=== PATIENT | female | born 1990 | race Caucasian/White ===

== ENCOUNTER → 2023-05-10 12:56 | Outpatient (BNVA) | payer SELFPAY | PROVIDERS: Visit Provider Physician Assistant Medical ==

== ENCOUNTER 2023-08-03 20:03 | Emergency (ER) | payer BC, SELFPAY ==
[2023-08-03 20:18] VITALS: BP 129/90; PULSE 80; O2SAT 98
[2023-08-03 20:23] VITALS: BP 127/85; PULSE 74; RESP 18; TEMP 37.3; O2SAT 97; BMI 27.1
--- NOTE | 2023-08-03 20:46 | ED_ITS ---
HPI - Eye Problem General Chief complaint: Eye Problems Stated complaint: CENTRAL& PERIPHERAL STATIC VISION X1.5 HRS Time Seen by Provider: 08/03/23 20:45 Source: patient Mode of arrival: ambulatory Limitations: no limitations History of Present Illness HPI Narrative: Patient no significant past medical history status post LASIK surgery of the eye around 18:30 while sitting patient noticed halos in both eyes left more than right with moves with eye movements followed by patient had some frontal headache no nausea no vomiting no history of migraines symptoms lasted for an hour or so now the getting better no other deficits patient ambulating steady gait Related Data Previous Rx's Medication Instructions Recorded jdefkochvs-rxstyavbpggjy-elkpyymb 1 tab PO Q6H PRN haeadace #20 tabs 08/03/23 50 mg-325 mg-40 mg tablet Allergies Allergy/AdvReac Type Severity Reaction Status Date / Time codeine Allergy Rash Verified 08/03/23 20:32 Penicillins Allergy Hives Verified 08/03/23 20:32 sulfamethoxazole AdvReac Palpitation Verified 08/03/23 20:32 [From Bactrim] s trimethoprim [From Bactrim] AdvReac Palpitation Verified 08/03/23 20:32 s Review of Systems Review of Systems: Yes all other systems are reviewed and are negative [facility] Social History Social History Alcohol intake: current Alcohol intake frequency: holidays/special occasions only Smoked in Last 30 Days: No Use of substances other than those prescribed or required for medical reasons: No Advance Directives: No Advance Directives Information Provided: No Patient : No Physical Exam Vital Signs: Vital Signs: Last Vital Signs Temp 99.1 F 08/03/23 20:23 Pulse 72 08/03/23 21:45 Resp 16 08/03/23 21:45 BP 129/81 08/03/23 21:45 Pulse Ox 97 08/03/23 20:23 O2 Del Method Room Air 08/03/23 20:23 BMI result Body Mass Index 27.1 Appearance: Alert. Oriented X3. No acute distress. Eyes: PERRLA, No Nystagmus EOMI fundus benign, anterior and posterior chamber normal IOP 16 in both eyes, visual feel normal bilaterally no scotoma visual graf normal ENT: Pharynx normal. Oral Mucosa moist temporal artery nontender Neck: Normal inspection. Neck supple. CVS: Normal heart rate and rhythm. Pulses normal. Respiratory: No respiratory distress. Equal air entry bilateral, Abdomen: Soft and nontender. Bowel sounds are present, Skin: Skin warm and dry. Normal skin color. Normal skin turgor. Extremities: No lower extremity edema. No calf tenderness Neuro: Oriented X 3. No motor deficit. No sensory deficit.No cerebellar signs , cranial nerves II-XII intact Medications Administered Discontinued Medications Generic Name Dose Route Start Last Admin Trade Name Freq PRN Reason Stop Dose Admin Acetaminophen/Butalbital/Caffeine 1 tab 08/03/23 21:09 08/03/23 21:20 Butalb/Acetamin/Caff 50/325/40 Tablet PO 08/03/23 21:10 1 tab ONCE ONE Administration Medical Decision Making Differential Diagnosis Differential Diagnoses: The differential diagnosis associated with the presentation includes Glaucoma/migraine headache/ocular migraine Procedures Procedure Narrative Procedure Narrative: Ocular ultrasound bilateral: Normal anterior chamber and posterior chamber not take no signs of retinal detachment Discharge Plan Discharge Clinical Impression: Ocular migraine Patient Disposition: Home, Self-Care Instructions: Ocular Migraine (ED) Additional Instructions: Your symptoms likely with ocular migraine Take Fioricet 1 tablet every 6 hours as needed See 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
[2023-08-03] MEDS: Butalb/Acetamin/Caff 50/325/40 TABLET 1 TAB PO (21:20)
[2023-08-03 21:45] VITALS: BP 129/81; PULSE 72; RESP 16
== END 2023-08-03 21:55 | disposition home or self-care (01) ==
PROVIDERS: Emergency Provider Internal Medicine; PCP Internal Medicine
DX: G43.809 Other migraine, not intractable, without status migrainosus (principal)
CPT/HCPCS: 99283; 99284

== ENCOUNTER 2024-01-15 12:53 | Emergency (ER) | payer OTHER, SELFPAY ==
--- NOTE | ~2024-01-15 | XR_ITS ---
EXAMINATION: XR HAND/WRIST, RIGHT CLINICAL INFORMATION: Pain status post fall COMPARISON: None TECHNIQUE: PA, lateral, and oblique views of the right hand and wrist. FINDINGS: The bones and soft tissues are normal. No fracture. Alignment is anatomic. Joint spaces are maintained. No erosions or soft tissue calcifications. XR/XR hand wrist RT IMPRESSION: Normal radiographs of the hand and wrist.
--- NOTE | ~2024-01-15 | XR_ITS ---
EXAMINATION: XR SHOULDER, RIGHT CLINICAL INFORMATION: Pain status post fall COMPARISON: None available. TECHNIQUE: AP external rotation, Grashey, scapular Y, and axillary views of the right shoulder. FINDINGS: The bones and soft tissues are normal. No fracture. Glenohumeral and acromioclavicular alignment is anatomic with normal joint space. No abnormal soft tissue calcifications. XR/XR shoulder RT min 2V IMPRESSION: Normal right shoulder.
[2024-01-15 12:55] VITALS: BP 134/93; PULSE 92; RESP 16; TEMP 36.3; O2SAT 99; BMI 24.8
--- NOTE | 2024-01-15 15:00 | ED_ITS ---
HPI - Fall General Chief Complaint: Fall Stated Complaint: fall Time Seen by Provider: 01/15/24 12:55 Source: patient and RN notes reviewed Mode of arrival: ambulatory Limitations: no limitations History of Present Illness ED Provider: Camilla Vasques PA-C [facility] Narrative: This is a 33-year-old female who presents emergency department with complaints of right shoulder and right wrist pain after a mechanical fall which occurred 2 days ago. Patient states that she was wearing high heels and tripped on them causing her to fall onto her right side. She did strike the right side of her face. No loss of consciousness. She has had pain in her right shoulder and right wrist since this fall. She has been wearing a wrist splint for comfort which has provided her with some relief. Denies any severe headache or dizziness. She is right-handed, she does have good range of motion of her right wrist and right shoulder however this causes her to have more pain. No other complaints or concerns at this time. MD complaint: fall Onset (ago): day(s) Fall witnessed: no Context: tripped/slipped Location of injury - extremities: right: shoulder Severity: moderate Quality: aching Associated symptoms (after fall): denies Related Data Previous Rx's ?Medication ?Instructions ?Recorded hmmlkojwiq-kxvapbreijtww-ifamtzqt 1 tab PO Q6H PRN haeadace #20 tabs 08/03/23 50 mg-325 mg-40 mg tablet Allergies Allergy/AdvReac Type Severity Reaction Status Date / Time codeine Allergy Rash Verified 01/15/24 12:59 Penicillins Allergy Hives Verified 01/15/24 12:59 sulfamethoxazole AdvReac Palpitation Verified 01/15/24 12:59 [From Bactrim] s trimethoprim [From Bactrim] AdvReac Palpitation Verified 01/15/24 12:59 s Review of Systems Review of Systems: Yes all other systems are reviewed and are negative Constitutional: Constitutional: Reports as per [facility] Social History Social History Alcohol intake: current Alcohol intake frequency: holidays/special occasions only Advance Directives: No Physical Exam Vital Signs: Vital Signs: Last Vital Signs Temp 97.3 F 01/15/24 15:06 Pulse 92 01/15/24 15:06 Resp 16 01/15/24 15:06 BP 134/93 H 01/15/24 15:06 Pulse Ox 99 01/15/24 15:06 O2 Del Method Room Air 01/15/24 15:06 BMI result Body Mass Index 24.8 Const: General: cooperative, comfortable and no acute distress Orientation/consciousness: patient oriented x3 Limitations: no limitations HEENT: Head: Yes normal to inspection, Yes normocephalic and Yes atraumatic Ears: hearing grossly normal bilaterally General nose exam: Normal external nose present Face and sinus: Yes normal facial exam Mouth: Normal oral and palatal mucosa present, oropharynx normal and moist mucous membranes Throat: Yes posterior oropharynx normal Eyes: General: appearance normal, both eyes and all related structures Eyelids: Yes eyelids normal Conjunctivae: conjunctivae normal Sclerae: sclerae normal Pupils: Equal, round and reactive pupils present EOM: EOMs intact bilaterally Neck: Neck: Yes normal visual inspection, Yes full ROM and Yes no lymphadenopathy Lymphatic: no lymphadenopathy noted Chest: Chest palpation & inspection: normal inspection of the chest Resp: Effort & Inspection: normal respiratory effort and able to speak in complete sentences Auscultation: clear to auscultation bilaterally, no crackles, no rales, no rhonchi and no wheezes Cardio: Rate: regular rate Rhythm: regular rhythm Heart sounds: S1 normal heart sound present and S2 normal heart sound present GI: Inspection: Yes normal to inspection Skin: General skin exam: no rashes or lesions noted Trauma: no lacerations or abrasions Wounds: no wounds Neuro: General: patient oriented x3 and moves all extremities Cranial nerves: Yes Equal, round and reactive pupils present Extrem: Other: Right shoulder, no overlying ecchymosis, bony abnormality or swelling. She does have tenderness palpation along the right AC joint full range of motion of the shoulder without difficulty. Negative empty can Right wrist, with full range of motion, no snuffbox tenderness. Strong radial pulse. Able to make a fist without difficulty. Mild tenderness palpation along the 5th metacarpal. General: Yes normal to inspection Right upper extremity: normal to inspection Left upper extremity: normal to inspection Right lower extremity: normal to inspection Left lower extremity: normal to inspection Course Reevaluation(s) Reevaluation #1: X-rays negative, discussed with patient, also given return precautions. She understands and agrees with plan. Patient stable for discharge. Medical Decision Making Medical Decision Making [facility] Narrative: This is a 33-year-old female who presents to the emergency department with complaints of right wrist pain and right shoulder pain status post mechanical fall which occurred on . On arrival, patient mildly hypertensive at 134/93. She did report head strike however no LOC, headache or dizziness since the fall. No obvious bony deformity on examination however given pain and mechanical fall, will obtain x-rays for rule out of bony abnormality. Differential Diagnosis Differential Diagnoses: The differential diagnosis associated with the presentation includes Fracture, strain, strain, contusion Independent Interpretation Interpretation: X-rays reviewed by me, no obvious bony deformity or swelling. Radiology Impression Discussion of test interpretation with radiology: I have reviewed the radiologist's reading. Radiologist Impression: FINDINGS: The bones and soft tissues are normal. No fracture. Glenohumeral and acromioclavicular alignment is anatomic with normal joint space. No abnormal soft tissue calcifications. XR/XR shoulder RT min 2V IMPRESSION: Normal right shoulder. Dictated By: Fernando Lacy MD XR/XR hand wrist RT IMPRESSION: Normal radiographs of the hand and wrist. Dictated By: Fernando Lacy MD External Record Review External record reviewed: Inpatient record, Office record, Outpatient record, Prior outpatient labs, Prior outpatient radiology, Primary care record and Outside ED record Discharge Plan Discharge Clinical Impression: Contusion of right shoulder, Contusion of right wrist Patient Disposition: Home, Self-Care Instructions: Contusion in Adults (ED) Additional Instructions: You were seen in the emergency department after a trip and fall. Your x-rays are unremarkable. Please rest, ice, alternate between ibuprofen and Tylenol as needed. If any new or worsening symptoms occur including but not limited to worsening pain, please return for re-evaluation. Prescriptions: No Action tqmgdgukmz-grgcydicwjlre-twlk 50-325-40 mg tablet 1 tab PO Q6H PRN (Reason: haeadace) Qty: 20 0RF Interventions: ED Discharge Assessment Last Done: 01/15/24 15:06 Discharge Date/Time: 01/15/24 15:07 Print Language: Croatian
[2024-01-15 15:06] VITALS: BP 134/93; PULSE 92; RESP 16; TEMP 36.3; O2SAT 99
== END 2024-01-15 15:07 | disposition home or self-care (01) ==
PROVIDERS: Emergency Provider Emergency Medicine Emergency Medical Services; PCP Internal Medicine
DX: S40.011A Contusion of right shoulder, initial encounter (principal); S60.211A Contusion of right wrist, initial encounter; W01.0XXA Fall on same level from slipping, tripping and stumbling without subsequent striking against object, initial encounter; Y93.01 Activity, walking, marching and hiking; Y92.9 Unspecified place or not applicable; Y99.9 Unspecified external cause status
CPT/HCPCS: 73030; 73110; 73130; 99282; 99283

== ENCOUNTER 2024-06-15 15:04 | Emergency (ER) | payer OTHER, SELFPAY ==
--- NOTE | ~2024-06-15 | CT_ITS ---
EXAMINATION: CT ABDOMEN AND PELVIS WITHOUT CONTRAST CLINICAL INFORMATION: Lower abdominal pain COMPARISON: None available. TECHNIQUE: Multidetector volumetric imaging was performed from the superior aspect of the liver through the pubic symphysis. Sagittal and coronal reformatted images were obtained on the technologist's workstation. This CT examination was performed using dose optimization techniques as appropriate, variously including the following: *Automated exposure control *Adjustment of mA and/or kV according to patient size (this includes techniques or standardized protocols for targeted exams where dose is matched to indication/reason for exam; i.e. extremities or head) *Use of iterative reconstruction technique DLP: 405 mGy-cm FINDINGS: LUNG BASES: The visualized lung bases are unremarkable. LIVER, GALLBLADDER, AND BILIARY TREE: The liver is normal in size, shape, and attenuation. No focal hepatic lesion or biliary ductal dilatation is present. The gallbladder is unremarkable with no evidence of radiopaque gallstones, gallbladder wall thickening, or obvious pericholecystic inflammatory changes. PANCREAS: Unremarkable. SPLEEN: Unremarkable. ADRENAL GLANDS: Unremarkable. KIDNEYS AND URETERS: The kidneys are normal in size, shape, and attenuation. No hydronephrosis, hydroureter, or calculi seen. No perinephric stranding. BLADDER: Unremarkable. GASTROINTESTINAL TRACT: The small and large bowel are unremarkable. The appendix is not identified. ABDOMINAL WALL: No significant hernia is appreciated. LYMPH NODES: Normal. VASCULAR: Unremarkable. PELVIC VISCERA: Mild inflammatory stranding around the cervix. Otherwise unremarkable. OSSEOUS STRUCTURES: Unremarkable. CT/CT abdomen pelvis wo IV con IMPRESSION: 1. Mild inflammatory stranding around the cervix which is of uncertain significance. Correlate with physical exam. 2. Otherwise, no focal inflammatory process or obstruction. Fleischner guidelines were followed. Electronically signed by: Thanh Schneider MD 06/15/2024 06:05 PM [facility]
--- OUTSIDE RECORDS SUMMARY | 2024-06-15 15:08 | XMS_ITS ---
Author Name [facility] Organization Unknown History of Medication Use Medication Directions Dispensed Refills Start Date End Date [facility] benzonatate 100 mg capsule TAKE 1 CAPSULE BY MOUTH THREE TIMES A DAY NEEDED FOR COUGH 04/26/2024 completed ibuprofen 800 mg tablet TAKE 1 TABLET EVERY 6 TO 8 HOURS NEEDED 04/18/2024 9 active trazodone 50 mg tablet TAKE 1/2 TO 1 TABLET ORALLY AT BEDTIME NEEDED FOR INSOMNIA 04/18/2024 9 active doxycycline hyclate 100 mg tablet TAKE 1 TABLET (100 MG TOTAL) BY MOUTH IN THE MORNING AND BEFORE BEDTIME FOR 7 DAYS 04/18/2024 9 completed hyoscyamine 0.125 mg sublingual tablet TAKE 1 TABLET BY MOUTH EVERY 4 HOURS NEEDED FOR CRAMPING. 04/18/2024 9 active chlorhexidine gluconate 0.12 % mouthwash RINSE WITH 1/2 OZ TWICE A DAY THEN SPIT OUT. DO NOT SWALLOW 04/18/2024 9 active hydrocodone 5 mg-acetaminophen 325 mg tablet 04/26/2024 completed methocarbamol 750 mg tablet 04/18/2024 9 completed metronidazole 0.75 % topical cream 04/18/2024 9 completed Nexplanon 68 mg subdermal implant Inject 1 implant by subcutaneous route. 04/26/2024 active fluticasone propionate 0.05 % topical cream 04/18/2024 9 completed Transderm-Scop 1 mg over 3 days transdermal patch 04/18/2024 9 completed gentamicin 0.3 % eye drops ADMINISTER 1 DROP TO THE RIGHT EYE 3 TIMES A DAY. 04/18/2024 9 completed clindamycin HCl 300 mg capsule PLEASE SEE ATTACHED FOR DETAILED DIRECTIONS 04/18/2024 9 completed hyoscyamine ER 0.375 mg tablet,extended release,12 hr 04/18/2024 9 completed Imodium A-D 04/18/2024 99 9 completed albuterol sulfate HFA 90 mcg/actuation aerosol inhaler INHALE 2 PUFFS BY MOUTH EVERY 6 HOURS NEEDED FOR WHEEZE 04/18/2024 9 completed Zyrtec 10 mg capsule 9 active Vyvanse 20 mg capsule 04/18/20 9 completed Elidel 1 % topical cream 04/26/2024 completed cyclobenzaprine 10 mg tablet 04/18/2024 9 completed prednisolone acetate 1 % eye drops,suspension 04/26/2024 complete d propranolol ER 60 mg capsule,24 hr,extended release TAKE 1 CAPSULE BY MOUTH EVERY DAY 04/18/2024 9 active lidocaine 5 % topical patch 04/26/2024 completed escitalopram 10 mg tablet TAKE 1 AND 1/2 TABLETS ONCE DAILY 04/18/2024 9 active alprazolam 0.25 mg tablet TAKE 1 TABLET BY MOUTH TWICE A DAY NEEDED FOR ANXIETY 04/18/2024 9 completed alprazolam 0.5 mg tablet TAKE 1/2 TABLET BY MOUTH TWICE A DAY NEEDED FOR ANXIETY 04/26/2024 active pantoprazole 40 mg tablet,delayed release TAKE 1 TABLET BY MOUTH EVERY MORNING ON AN EMPTY STOMACH. 04/26/2024 completed clobetasol 0.05 % topical ointment APPLY THIN COAT TO AFFECTED AREA TWICE A DAY 04/26/2024 completed ondansetron 4 mg disintegrating tablet DISSOVE 1 TABLET ON TONGUE EVERY 6 HOURS FOR NAUSEA 04/18/2024 9 active lisdexamfetamine 30 mg capsule TAKE 1 CAPSULE BY MOUTH EVERY DAY 04/26/2024 active ofloxacin 0.3 % eye drops 04/26/2024 completed diazepam 2 mg tablet 9 completed cephalexin 500 mg capsule PLEASE SEE ATTACHED FOR DETAILED DIRECTIONS 04/18/2024 9 completed doxycycline (VIBRA-TABS) 100 mg tablet Take 1 tablet (100 mg total) by mouth in the morning and 1 tablet (100 mg total) before bedtime. Do all this for 7 days. 03/30/2024 active HYDROcodone-acetamino phen (NORCO) 7.5-325 mg per tablet 02/14/2024 active ondansetron (ZOFRAN-ODT) 4 MG disintegrating tablet Take 4 mg by mouth 4 times daily (every 6 hours) as needed for nausea or vomiting. FOR NAUSEA 12/29/2023 active proMETHAZINE-dextrome thorphan (proMETHAZINE-DM) 6.25-15 MG/5ML syrup Take 5 mL by mouth 4 times daily (every 6 hours) as needed for cough. 12/29/2023 active propranolol (INDERAL) 60 MG tablet Take 60 mg by mouth 2 (two) times a day. 08/16/2022 active scopolamine (TRANSDERM-SCOP) patch Transderm-Scop 1.5 mg transdermal patch (1 mg over 3 days) APPLY 1 PATCH(ES) EVERY 72 HOURS BY TRANSDERMAL ROUTE. 08/16/2022 active etonogestreL (NEXPLANON) implant subdermal implant Nexplanon 68 mg subdermal implant Inject by subcutaneous route. 02/08/2022 active clindamycin (Cleocin HCL) 300 mg capsule Take 1 capsule (300 mg total) by mouth in the morning and 1 capsule (300 mg total) at noon and 1 capsule (300 mg total) before bedtime. Do all this for 10 days. 02/08/2022 active Multiple Vitamins-Minerals (MULTIVITAMIN ADULT PO) Take by mouth. 08/16/2022 active gentamicin (GARAMYCIN) 0.3 % ophthalmic solution Administer 1 drop to the right eye 3 (three) times a day. 08/16/2022 aborted Melatonin [address] 1 tablet under the tongue nightly. 08/16/2022 active traZODone (DESYREL) 50 MG tablet trazodone 50 mg tablet 08/16/2022 active Cetirizine HCl (ZyrTEC) 10 MG Cap Take by mouth. 08/16/2022 ac tive gentamicin 0.3 % eye drops ADMINISTER 1 DROP TO THE RIGHT EYE 3 TIMES A DAY. ADMINISTER 1 DROP TO THE RIGHT EYE 3 TIMES A DAY. 12/19/2022 completed traZODone (DESYREL) 50 mg tablet TAKE 1/2 TO 1 TABLET ORALLY AT BEDTIME NEEDED FOR INSOMNIA 02/08/2022 active acetaminophen (TYLENOL) 325 MG tablet Take 650 mg by mouth 4 times daily (every 6 hours) as needed. 08/16/2022 active benzonatate (Tessalon Perles) 100 mg capsule Take 100 mg by mouth 3 times daily as needed. 02/08/2022 active cetirizine (ZyrTEC) 10 MG tablet Take 10 mg by mouth daily. 08/16/2022 aborted cetirizine (ZyrTEC) 10 mg tablet Take by mouth. 02/08/2022 active scopolamine (TRANSDERM-SCOP) 1.5 mg patch 3 day Transderm-Scop 1.5 mg transdermal patch (1 mg over 3 days) APPLY 1 PATCH(ES) EVERY 72 HOURS BY TRANSDERMAL ROUTE. 02/08/2022 active hyoscyamine (LEVSIN) 0.125 mg SL tablet Take 0.125 mg by mouth every 30 minutes as needed. 02/08/2022 active Calcium-Vitamin D-Vitamin K (Calcium Soft Chews) 500-1000-40 MG-UNT-MCG Chew Tab Chew 1 gummy daily. 08/16/2022 active doxycycline (VIBRAMYCIN) 100 MG capsule Take 1 capsule (100 mg total) by mouth 2 (two) times a day. 07/12/2023 active propranolol ER 60 mg capsule,24 hr,extended release TAKE 1 CAPSULE BY MOUTH EVERY DAY TAKE 1 CAPSULE BY MOUTH EVERY DAY 12/19/2022 completed trazodone 50 mg tablet TAKE 1/2 TO 1 TABLET ORALLY AT BEDTIME NEEDED FOR INSOMNIA TAKE 1/2 TO 1 TABLET ORALLY AT BEDTIME NEEDED FOR INSOMNIA 12/19/2022 completed etonogestrel (Nexplanon) 68 MG implant Nexplanon 68 mg subdermal implant Inject 1 implant by subcutaneous route. 08/16/2022 active alprazolam 0.5 mg tablet TAKE 1/2 TABLET TWICE A DAY NEEDED FOR ANXIETY TAKE 1/2 TABLET TWICE A DAY NEEDED FOR ANXIETY 12/19/2022 completed clobetasol (TEMOVATE) 0.05 % ointment clobetasol 0.05 % topical ointment APPLY A THIN LAYER TO THE AFFECTED AREA(S) BY TOPICAL ROUTE 2 TIMES PER DAY 08/16/2022 aborted ALPRAZolam (XANAX) 0.5 mg tablet 0.25mg bid prn anxiety 09/12/2023 active calcium-vitamin D3-vitamin K 650 mg-12.5 mcg-40 mcg tablet,chewable 02/08/2022 active propranolol LA (INDERAL LA) 60 mg 24 hr capsule TAKE 1 CAPSULE BY MOUTH EVERY DAY 02/08/2022 active naproxen (NAPROSYN) 250 mg tablet Take 250 mg by mouth nightly. 02/08/2022 active albuterol (PROVENTIL HFA; VENTOLIN HFA) 108 (90 Base) MCG/ACT inhaler Inhale 2 puffs 4 times daily (every 6 hours) as needed for wheezing. 08/16/2022 active escitalopram 10 mg tablet TAKE 1 AND 1/2 TABLETS ONCE DAILY TAKE 1 AND 1/2 TABLETS ONCE DAILY 12/19/2022 completed Nexplanon 68 mg subdermal implant Inject 1 implant by subcutaneous route. Inject 1 implant by subcutaneous route. 12/19/2022 completed hyoscyamine (LEVSIN) Elixir Take 125 mcg by mouth every 4 (four) hours as needed. 08/16/2022 active albuterol HFA 90 mcg/actuation inhaler every 6 hours. 02/08/2022 active Nexplanon 68 mg subdermal implant Inject 1 implant by subcutaneous route. Inject 1 implant by subcutaneous route. 12/19/2022 completed lisdexamfetamine (VYVANSE) 20 MG capsule Take 30 mg by mouth. 08/16/2022 active lisdexamfetamine (Vyvanse) 30 mg capsule 30mg po qd. Diagnosis: ADHD F90.2 02/08/2022 active benzonatate (TESSALON) 100 MG capsule Take 1 capsule (100 mg total) by mouth 3 (three) times a day as needed for cough. 08/16/2022 aborted escitalopram (LEXAPRO) 10 MG tablet Take 10 mg by mouth daily. 08/16/2022 active Vyvanse 30 mg capsule TAKE 1 CAPSULE BY MOUTH DAILY TAKE 1 CAPSULE BY MOUTH DAILY 12/19/2022 completed melatonin 10 mg tablet,disintegrating 02/08/2022 act arelis ALPRAZolam (XANAX) 0.25 mg tablet TAKE 1 TABLET BY MOUTH 2 TIMES A DAY NEEDED FOR ANXIETY. 02/08/2022 active propranolol (INDERAL) 10 MG tablet Take 10 mg by mouth 3 (three) times a day. 08/16/2022 active naproxen (NAPROSYN) 250 MG tablet Take 250 mg by mouth. 08/16/2022 aborted cetirizine (ZyrTEC) 10 mg tablet Take 10 mg by mouth in the morning. 09/12/2023 active ALPRAZolam (XANAX) 0.25 MG tablet Take 0.25 mg by mouth 2 (two) times a day as needed. 08/16/2022 active cephALEXin (KEFLEX) 500 mg capsule Take 1 capsule (500 mg total) by mouth in the morning and 1 capsule (500 mg total) before bedtime. Do all this for 14 days. 02/08/2022 active escitalopram (LEXAPRO) 10 mg tablet TAKE 1 AND 1/2 TABLETS ONCE A DAY 02/08/2022 active MULTIVIT WITH MINERALS/LUTEIN (MULTIVITAMIN 50 PLUS ORAL) Take by mouth. 02/08/2022 active acetaminophen (TYLENOL) 650 mg 8 hr tablet Take 1,000 mg by mouth every 6 hours as needed. 02/08/2022 active Allergies Allergen Reaction Severity Comment Documented Date Source Statu s MEDICINAL PRODUCT CONTAINING PENICILLIN AND ACTING ANTIBACTERIAL AGENT (PRODUCT) hives [facility] BACTRIM Vomiting [facility] Problems Problem Status Onset Date Problem Type Date of Resolution Source ADHD (attention deficit hyperactivity disorder) evaluation active 2019-03-29 ProblemAct [facility] Post traumatic stress disorder (PTSD) active 2019-03-29 ProblemAct [facility] Anxiety disorder active 2019-11-07 ProblemAct [facility] Ingrown toenail of right foot active EncounterDiagnosisAct [facility] Pincer nail deformity active EncounterDiagnosis Act [facility] Irritable bowel syndrome with both constipation and diarrhea active 2016-08-05 ProblemAct [facility] Moderate episode of recurrent major depressive disorder active 2022-10-08 ProblemAct [facility] Major depressive episode active 2020-06-07 ProblemAct [facility] Acute lateral meniscus tear of left knee active 2018-07-06 ProblemAct [facility] On correction drug therapy active 2023-02-04 ProblemAct [facility] Adjustment disorder with mixed anxiety and depressed mood active 2019-10-31 ProblemAct [facility] GERD (gastroesophageal reflux disease) active 2016-01-24 ProblemAct [facility] Lumbar pain active 2019-08-17 ProblemAct [facility] Acute bronchitis, unspecified organism active EncounterDiagnosisAct [facility] Immunizations Vaccine Date Source Lot Number Status COVID-19, mRNA, LNP-S, PF, 1 00 mcg/0.5mL dose or 50 mcg/0.25mL dose 07/04/2020 [facility] [id number] completed Tdap 11/11/2019 [facility] [id number] completed Hep B, adult 10/07/2021 [facility] [id number] completed Hep B, adult 09/09/2021 [facility] [id number] completed influenza, injectable, quadr ivalent, preservative free 04/10/2022 [facility] [id number] completed Hep B, adult 04/10/2022 [facility] [id number] completed COVID-19 MRNA (MODERNA) 07/29/2020 [facility] [id number] c ompleted Influenza, Quadrivalent 04/10/2020 [facility] [id number] c ompleted COVID-19 MRNA MODERNA BIVALENT 07/03/2022 [facility] [id number] 2A completed COVID-19 MRNA (MODERNA) 07/03/2020 [facility] [id number] c ompleted COVID-19 mRNA (MODERNA BOOSTER 1/2 DOSE) 05/20/2021 [facility] [id number] completed
[2024-06-15 15:15] VITALS: BP 148/98; PULSE 88; RESP 18; TEMP 36.8; O2SAT 97; BMI 24.8
[2024-06-15 15:41] LABS: MANUAL DIFF FLAG NO
[2024-06-15 15:45] LABS: Basophils Percent Auto 0.3 % (0-2); Eosinophils Absolute Auto 0.1 X10*3/uL (0.0-0.4); Eosinophils Percent Auto 1.1 % (0-4); Hematocrit 38.9 % (37.0-47.0); Hemoglobin 13.4 g/dl (12.0-16.0); Imm Gran Abs Auto 0.01 X10*3/uL (0.00-0.03); Imm Gran Pct Auto 0.2 % (0.0-0.4); Lymphocytes Absolute Auto 1.2 X10*3/uL (1.2-4.9); Mean Corpuscular HGB Conc 34.4 g/dl (31.0-35.0); Mean Corpuscular Hemoglobin 30.5 pg (27.0-33.0); Mean Corpuscular Volume 88.4 fL (80.0-98.0); Mean Platelet Volume 8.6 fL (9.4-12.3); Monocytes Absolute Auto 0.5 X10*3/uL (0.1-1.2); Monocytes Percent Auto 7.5 % (2-11); Neutrophils Absolute Auto 4.4 x10*3/uL (2.0-8.3); Neutrophils Percent Auto 70.9 % (45-73); Platelet Count 239 X10*3/uL (160-400); Red Cell Distribution Width 12.2 % (11.0-16.0); White Blood Count 6.2 X10*3/uL (4.8-10.8)
--- NOTE | 2024-06-15 15:48 | ED_ITS ---
HPI - Abdominal Pain General Chief Complaint: Abdominal Pain Stated Complaint: Abd pain Time Seen by Provider: 06/15/24 15:21 Source: patient Mode of arrival: ambulatory Limitations: no limitations History of Present Illness ED Provider: Manoj Randolph PA-C HPI narrative: 33 yo female with history of kidney stones, pSBO in the past, history of infectious colitis in the past, who presents to the ER for evaluation of left lower back pain that started last night along with lower abdominal pain/suprapubic pain and nausea that started today. She also had 1 episode of forceful vomiting this afternoon with food particles from a meal 2 days ago. She is on ozempic 2.4mg 2x per month, maintainence dose, no change in over 1 year. She has a small, hard BM this morning, constipated which is normal for her. she did pass gas x1 today. she denies any urinary symptoms. no fever or chills. MD elicited complaint: abdominal pain and other (N/V x1) Pertinent past history: constipation and other (colitis, pSBO) Onset (ago): hour(s) Pain Consistency: constant Location: suprapubic Severity: moderate Quality: aching Radiation: back Migration to: no migration Exacerbating factors: nothing Relieving factors: nothing Associated symptoms: nausea and vomiting Related Data Previous Rx's ?Medication ?Instructions ?Recorded [id number]-vifkwubmqjmdq-[id number] 1 tab PO Q6H PRN haeadace #20 tabs 08/03/23 50 mg-325 mg-40 mg tablet Allergies Allergy/AdvReac Type Severity Reaction Status Date / Time codeine Allergy Rash Verified 06/15/24 15:17 Penicillins Allergy Hives Verified 06/15/24 15:17 sulfamethoxazole AdvReac Palpitation Verified 06/15/24 15:17 [From Bactrim] s trimethoprim [From Bactrim] AdvReac Palpitation Verified 06/15/24 15:17 s Review of Systems Review of Systems Yes all other systems are reviewed and are negative [facility] Social History Social History Alcohol intake: current Alcohol intake frequency: holidays/special occasions only Advance Directives: No Advance Directives Information Provided: Yes Do you have a plan to hurt others: No Plan Patient : No Physical Exam ED Vital Signs: Vital Signs - 24 hr 06/15/24 15:15 Temperature 98.3 F Pulse Rate 88 Respiratory Rate 18 Blood Pressure 148/98 H Pulse Oximetry 97 Oxygen Delivery Method Room Air BMI result Body Mass Index 24.8 Appearance: Alert. Oriented X3. No acute distress. Head: normocephalic, atraumatic. Eyes: Pupils equal, round and reactive to light. ENT: Pharynx normal. No tonsillar swelling or exudate. Neck: Normal inspection. Neck supple. CVS: Normal heart rate and rhythm. Pulses normal. Respiratory: No respiratory distress. Breath sounds normal. Abdomen: Soft with mild tenderness in the left upper quadrant, suprapubic area without any rebound or guarding +BS x4. No CVA tenderness. pelvic deferred Skin: Skin warm and dry. Normal skin color. Normal skin turgor. No rashes. Extremities: No lower extremity edema. No joint swelling. Neuro/psych: Oriented X 3. No motor deficit. No sensory deficit. CN II-XII intact. Normal speech and cognition. Medical Decision Making Medical Decision Making [facility] Narrative: 33-year-old female with history of partial small bowel obstruction in the past, history of kidney stones, history of colitis who has had several colonoscopies in the past, last was in 2019 and was normal who presents to the ER for evaluation of lower abdominal pain, nausea, back pain that started last night and got worse today. 1 episode of foreceful vomiting today labs reassuring with no leukocytosis, no metabolic derangement, normal lipase and LFTs. Her abdomen exam is exam is benign with normoactive bowel sounds. given zofran and toradol with improvement. nausea returned and then given reglan. no vomiting here. CT scan is showing some mild stranding around the cervix. Patient has no vaginal discharge or bleeding. She has an appointment with her OBGYN tomorrow for a Pap smear. Pelvic deferred today. She is symptomatically improved. Comfortable discharge home with outpatient follow-up. Return precautions were discussed Differential Diagnosis Differential Diagnoses: The differential diagnosis associated with the presentation includes Partial small bowel obstruction, kidney stone, viral gastroenteritis, delayed gastric emptying from Ozempic, pancreatitis, diverticulitis, colitis Admission/Observation Consideration of admission/observation: Escalation of care including admission/observation considered Lab Data [facility] Lab Attestation statement: I reviewed the patient's lab results. no leukocytosis, normal LFTs and lipase 12/12/24 15:34 06/15/24 15:35 Labs: Lab Results 06/15/24 06/15/24 06/15/24 Range/Units 15:34 15:35 16:54 WBC 6.2 (4.8-10.8) X10*3/uL RBC 4.40 (4.20-5.50) X10*6/uL Hgb 13.4 (12.0-16.0) g/dl Hct 38.9 (37.0-47.0) % MCV 88.4 (80.0-98.0) fL MCH 30.5 (27.0-33.0) pg MCHC 34.4 (31.0-35.0) g/dl RDW 12.2 (11.0-16.0) % Plt Count 239 (160-400) X10*3/uL MPV 8.6 L (9.4-12.3) fL Immature Gran % (Auto) 0.2 (0.0-0.4) % Neut % (Auto) 70.9 (45-73) % Lymph % (Auto) 20.0 (20-40) % [place] % (Auto) 7.5 (2-11) % Eos % (Auto) 1.1 (0-4) % Baso % (Auto) 0.3 (0-2) % Lymph # (Auto) 1.2 (1.2-4.9) X10*3/uL [place] # (Auto) 0.5 (0.1-1.2) X10*3/uL Eos # (Auto) 0.1 (0.0-0.4) X10*3/uL Baso # (Auto) 0.0 (0.0-0.2) X10*3/uL Abs Immat Gran (auto) 0.01 (0.00-0.03) X10*3/uL Absolute Neuts (auto) 4.4 (2.0-8.3) x10*3/uL Absolute Nucleated RBC 0.000 (0.0-0.012) X10*3/uL Nucleated RBC % (auto) 0.0 (0.0-0.2) /100WBC Sodium 140 (135-145) mmol/L Potassium 4.4 (3.3-5.1) mmol/L Chloride 108 (96-108) mmol/L Carbon Dioxide 26 (22-29) mmol/L Anion Gap 10 L (12-20) BUN 11 (9-16) mg/dL Creatinine 0.80 (0.5-1.4) mg/dL Estim Creat Clear Calc 88.9 Estimated GFR > 60 Random Glucose 90 (60-115) mg/dL Calcium 9.7 (8.4-10.2) mg/dL Magnesium 2.2 (1.6-2.6) mg/dL Total Bilirubin 0.8 (0.0-1.0) mg/dL AST 26 (5-31) U/L ALT 21 (0-31) U/L Alkaline Phosphatase 39 (39-117) U/L Total Protein 6.9 (6.5-8.0) g/dL Albumin 4.5 (3.5-5.0) g/dL Lipase 19 (8-78) U/L Beta HCG, Quant < 2 mIU/mL Urine Color Yellow Urine Appearance Clear Urine pH 6.5 (5.0-9.0) Ur Specific [place] 1.015 (1.005-1.025) Urine Protein Negative (Neg-Trace) mg/dL Urine Glucose (UA) Negative (Negative) mg/dL Urine Ketones Negative (Negative) mg/dL Urine Blood Negative (Negative) Urine Nitrite Negative (Negative) Ur Leukocyte Esterase Negative (Negative) Independent Interpretation I performed an independent interpretation of an: CT Scan Interpretation: CT scan with distended stomach, flu contents in the stomach, no evidence of bowel obstruction, no hydronephrosis Radiology Impression Discussion of test interpretation with radiology: I have reviewed the radiologist's reading. External Record Review External record reviewed: Outpatient record, Prior outpatient labs and Prior outpatient radiology Prescription Management I considered prescription management with: Pain Medication and Antibiotic Medications Administered Discontinued Medications Generic Name Dose Route Start Last Admin Trade Name Freq PRN Reason Stop Dose Admin Sodium Chloride 1,000 mls @ 999 mls/hr 06/15/24 16:00 06/15/24 16:56 Ns IVCONT 06/15/24 17:00 Infused .Q1H1M TRUDY Infusion Ketorolac Tromethamine 15 mg 06/15/24 15:46 06/15/24 16:09 Ketorolac Tromethamine 15 Mg/Ml Vial IVPUSH 06/15/24 15:47 15 mg ONCE ONE Administration Metoclopramide HCl 10 mg 06/15/24 17:23 06/15/24 17:34 Metoclopramide Hcl 10 Mg/2 Ml Vial IVPUSH 06/15/24 17:24 10 mg ONCE ONE Administration Ondansetron HCl 4 mg 06/15/24 15:46 06/15/24 16:09 Ondansetron Hcl 4 Mg/2 Ml Vial IVPUSH 06/15/24 15:47 4 mg ONCE ONE Administration Critical Care Time Critical Care Time Critical Care Time: No Discharge Plan Discharge Clinical Impression: Nausea & vomiting Qualifiers: Vomiting type: unspecified Qualified Code(s): R11.2 - Nausea with vomiting, unspecified Patient Disposition: Home, Self-Care Instructions: Acute Nausea and Vomiting (ED) Additional Instructions: You lab workup today was unremarkable. Your urine test was negative for infection and . You may have a viral GI bug also known as gastroenteritis. Stick to a bland diet like soup and toast while you are not feeling well. Take the previously prescribed medication as needed for nausea. Your CT scan findings are below Follow up with your CONTRACT ADMINISTRATION COORDINATOR tomorrow. If you develop new or worsening symptoms call 911 or come back to the ER for further evaluation. EXAMINATION: CT ABDOMEN AND PELVIS WITHOUT CONTRAST CLINICAL INFORMATION: Lower abdominal pain COMPARISON: None available. TECHNIQUE: Multidetector volumetric imaging was performed from the superior aspect of the liver through the pubic symphysis. Sagittal and coronal reformatted images were obtained on the technologist's workstation. This CT examination was performed using dose optimization techniques as appropriate, variously including the following: *Automated exposure control *Adjustment of mA and/or kV according to patient size (this includes techniques or standardized protocols for targeted exams where dose is matched to indication/reason for exam; i.e. extremities or head) *Use of iterative reconstruction technique DLP: 405 mGy-cm FINDINGS: LUNG BASES: The visualized lung bases are unremarkable. LIVER, GALLBLADDER, AND BILIARY TREE: The liver is normal in size, shape, and attenuation. No focal hepatic lesion or biliary ductal dilatation is present. The gallbladder is unremarkable with no evidence of radiopaque gallstones, gallbladder wall thickening, or obvious pericholecystic inflammatory changes. PANCREAS: Unremarkable. SPLEEN: Unremarkable. ADRENAL GLANDS: Unremarkable. KIDNEYS AND URETERS: The kidneys are normal in size, shape, and attenuation. No hydronephrosis, hydroureter, or calculi seen. No perinephric stranding. BLADDER: Unremarkable. GASTROINTESTINAL TRACT: The small and large bowel are unremarkable. The appendix is not identified. ABDOMINAL WALL: No significant hernia is appreciated. LYMPH NODES: Normal. VASCULAR: Unremarkable. PELVIC VISCERA: Mild inflammatory stranding around the cervix. Otherwise unremarkable. OSSEOUS STRUCTURES: Unremarkable. IMPRESSION: 1. Mild inflammatory stranding around the cervix which is of uncertain significance. Correlate with physical exam. 2. Otherwise, no focal inflammatory process or obstruction. Prescriptions: No Action [id number]-xhznfwolavfig-aarl 50-325-40 mg tablet 1 tab PO Q6H PRN (Reason: haeadace) Qty: 20 0RF Referrals: Moriah Mcelroy MD [Primary Care Provider] - Stand Alone Forms: Work/School Release Print Language: Libyan
[2024-06-15 15:56] LABS: Alanine Aminotransferase 21 U/L (0-31); Albumin Level 4.5 g/dL (3.5-5.0); Alkaline Phosphatase 39 U/L (39-117); Anion Gap 10 (12-20); Aspartate Amino Transferase 26 U/L (5-31); Bilirubin Total 0.8 mg/dL (0.0-1.0); Blood Urea Nitrogen 11 mg/dL (9-16); Calcium 9.7 mg/dL (8.4-10.2); Carbon Dioxide 26 mmol/L (22-29); Chloride 108 mmol/L (96-108); Creatinine Clr Calc Pharmacy 88.9; Estimated Glomerular Filt Rate > 60; Glucose Random 90 mg/dL (60-115); Lipase 19 U/L (8-78); Magnesium 2.2 mg/dL (1.6-2.6); Potassium 4.4 mmol/L (3.3-5.1); Sodium 140 mmol/L (135-145); Total Protein 6.9 g/dL (6.5-8.0)
[2024-06-15 16:02] LABS: HCG Quantitative < 2 mIU/mL
[2024-06-15] MEDS: 0.9 % Sodium Chloride 1,000 ML 999 ML IVCONT (16:06)
[2024-06-15] MEDS: Ketorolac Tromethamine 15 MG/ML VIAL IVPUSH (16:09)
[2024-06-15] MEDS: ondansetron HCL 4 MG/2 ML VIAL IVPUSH (16:09)
[2024-06-15 17:03] LABS: Appearance Urine Clear; Color Urine Yellow; Glucose Urine UA Negative (Negative); Leukocyte Esterase Urine Negative (Negative); Nitrite Urine Negative (Negative); PH 6.5 (5.0-9.0); Specific Gravity - Urine 1.015 (1.005-1.025); Urine Blood Negative (Negative); Urine Ketones Negative (Negative); Urine Protein Negative (Neg-Trace)
[2024-06-15] MEDS: Metoclopramide HCl 10 MG/2 ML VIAL IVPUSH (17:34)
[2024-06-15 18:54] VITALS: BP 118/70; PULSE 80; RESP 18; TEMP 36.6; O2SAT 96
== END 2024-06-15 18:58 | disposition home or self-care (01) ==
PROVIDERS: Physician Assistant; Physician Assistant Medical; Emergency Provider Student in an Organized Health Care Education/Training Program; PCP Internal Medicine
DX: R11.2 Nausea with vomiting, unspecified (principal); R10.30 Lower abdominal pain, unspecified
CPT/HCPCS: 36415; 74176; 80053; 81003; 83690; 83735; 84702; 85025; 96361; 96374; 96375; 99284; J1885; J2405; J2765

== ENCOUNTER 2025-02-02 06:47 | Emergency (ER) | payer OTHER, SELFPAY ==
[2025-02-02] VITALS (8 sets, daily range): BP systolic 102–124; BP diastolic 46–79; PULSE 71–91; RESP 16; TEMP 36.4–36.6; O2SAT 96–100; BMI 24.8
--- NOTE | 2025-02-02 07:36 | ECG_ITS ---
Test Reason : dizziness Blood Pressure : */* mmHG Vent. Rate : 78 BPM Atrial Rate : 78 BPM P-R Int : 192 ms QRS Dur : 82 ms QT Int : 378 ms P-R-T Axes : 16 61 28 degrees QTcB Int : 430 ms Normal sinus rhythm Normal ECG No previous ECGs available Referred By: Generic ED Physician Electronically Signed By: MYRNA WILSON MD
--- OUTSIDE RECORDS SUMMARY | 2025-02-02 07:38 | XMS_ITS ---
Author Name [facility] Organization Unknown History of Medication Use Medication Directions Dispensed Refills Start Date End Date Stat propranolol ER 60 mg capsule,24 hr,extended release TAKE 1 CAPSULE BY MOUTH EVERY DAY 08/16/2024 active doxycycline (VIBRA-TABS) 100 mg tablet Take 1 tablet (100 mg total) by mouth in the morning and 1 tablet (100 mg total) before bedtime. Do all this for 7 days. 03/22/2024 03/30/20 active scopolamine 1 mg over [address] 1 patch onto the skin every third day. 02/28/2024 active HYDROcodone-acetamino phen (NORCO) 7.5-325 mg per tablet 02/02/2024 active proMETHAZINE-dextrome thorphan (proMETHAZINE-DM) 6.25-15 MG/5ML syrup Take 5 mL by mouth 4 times daily (every 6 hours) as needed for cough. 12/27/2023 active ondansetron (ZOFRAN-ODT) 4 MG disintegrating tablet Take 4 mg by mouth 4 times daily (every 6 hours) as needed for nausea or vomiting. FOR NAUSEA 12/23/2023 active ALPRAZolam (XANAX) 0.5 mg tablet TAKE 0.5 BY MOUTH TWICE A DAY NEEDED FOR ANXIETY 07/23/2023 active hyoscyamine 0.125 mg sublingual tablet Take 1 tablet (0.125 mg total) by mouth every 4 (four) hours as needed for cramping. 02/11/2023 active pantoprazole 40 mg tablet,delayed release Take 1 tablet (40 mg total) by mouth every morning on an empty stomach. 04/16/2022 09/23/19 completed benzonatate (TESSALON) 100 MG capsule Take 1 capsule (100 mg total) by mouth 3 (three) times a day as needed for cough. 01/16/2022 07/10/19 24 aborted albuterol sulfate HFA 90 mcg/actuation aerosol inhaler Inhale 2 puffs into the lungs every 6 (six) hours as needed. 01/16/2022 active lisdexamfetamine (Vyvanse) 30 mg capsule 30mg po qd. Diagnosis: ADHD F90.2 10/21/2021 03/23/20 24 active trazodone 50 mg tablet 25mg to 50mg po at bedtime prn insomnia 06/13/2020 active traZODone (DESYREL) 50 MG tablet trazodone 50 mg tablet 06/13/2020 active acetaminophen 325 mg tablet Take 2 tablets (650 mg total) by mouth every 6 (six) hours as needed for pain. 11/13/2019 active acetaminophen (TYLENOL) 325 MG tablet Take 650 mg by mouth 4 times daily (every 6 hours) as needed. 11/13/2019 active alprazolam 0.25 mg tablet Take 1 tablet (0.25 mg total) by mouth 2 (two) times a day as needed. 06/26/2019 active ALPRAZolam (XANAX) 0.25 MG tablet Take 0.25 mg by mouth 2 (two) times a day as needed. 06/26/2019 active etonogestrel 68 mg subdermal implant Nexplanon 68 mg subdermal implantInject by subcutaneous route. 10/18/19 25 completed doxycycline hyclate 100 mg capsule TAKE 1 CAPSULE TWICE A DAY FOR 10 DAYS 06/16/20 24 completed doxycycline hyclate 100 mg tablet TAKE 1 TABLET (100 MG TOTAL) BY MOUTH IN THE MORNING AND BEFORE BEDTIME FOR 7 DAYS 06/16/20 24 completed hydrocodone 7.5 mg-acetaminophen 325 mg tablet TAKE 1 TABLET BY MOUTH EVERY 8 HOURS NEEDED FOR PAIN 06/16/20 24 completed ibuprofen 800 mg tablet TAKE 1 TABLET EVERY 6 TO 8 HOURS NEEDED 06/16/20 24 completed promethazine-DM 6.25 mg-15 mg/5 mL oral syrup TAKE 5 ML BY MOUTH 4 TIMES A DAY EVERY 6 HOURS NEEDED FOR COUGH 06/16/20 24 completed scopolamine 1 mg over [address] 1 PATCH ONTO THE SKIN EVERY THIRD DAY. 06/16/20 24 completed clobetasol (TEMOVATE) 0.05 % ointment clobetasol 0.05 % topical ointment APPLY A THIN LAYER TO THE AFFECTED AREA(S) BY TOPICAL ROUTE 2 TIMES PER DAY 07/10/19 24 active albuterol sulfate HFA 90 mcg/actuation aerosol inhaler INHALE 2 PUFFS BY MOUTH EVERY 6 HOURS NEEDED FOR WHEEZE 12/18/19 23 completed alprazolam 0.25 mg tablet TAKE 1 TABLET BY MOUTH TWICE A DAY NEEDED FOR ANXIETY 12/18/19 23 completed benzonatate 100 mg capsule TAKE 1 CAPSULE BY MOUTH THREE TIMES A DAY NEEDED FOR COUGH 12/18/19 23 completed pantoprazole 40 mg tablet,delayed release TAKE 1 TABLET BY MOUTH EVERY MORNING ON AN EMPTY STOMACH. 12/18/19 completed hyoscyamine 0.125 mg/5 mL oral elixir Take 125 mcg by mouth every 4 (four) hours as needed. 09/23/19 23 completed cyclobenzaprine 10 mg tablet 02/15/20 completed diazepam 2 mg tablet 02/15/20 20 completed Lillow (28) 0.15 mg-0.03 mg tablet Take 1 tablet every day by oral route. 02/15/20 20 completed Vyvanse 20 mg capsule 08/01/19 20 completed ofloxacin 0.3 % eye drops 10/27/19 19 completed prednisolone acetate 1 % eye drops,suspension 10/27/19 19 completed alprazolam 0.5 mg tablet TAKE 0.5 BY MOUTH TWICE A DAY NEEDED FOR ANXIETY active escitalopram 10 mg tablet TAKE 1 AND 1/2 TABLETS ONCE DAILY active escitalopram 10 mg tablet escitalopram 15 mg tablet active hyoscyamine 0.125 mg sublingual tablet TAKE 1 TABLET BY MOUTH EVERY 4 HOURS NEEDED FOR CRAMPING. active lisdexamfetamine 20 mg capsule Take 30 mg by mouth as needed. Takes on work days active melatonin active trazodone 50 mg tablet TAKE 1/2 TO 1 TABLET ORALLY AT BEDTIME NEEDED FOR INSOMNIA active albuterol HFA 90 mcg/actuation inhaler every 6 hours. active Cetirizine HCl (ZyrTEC) 10 MG Cap Take by mouth. ac tive Melatonin [address] 1 tablet under the tongue nightly. active melatonin 10 mg tablet,disintegrating act arelis MULTIVIT WITH MINERALS/LUTEIN (MULTIVITAMIN 50 PLUS ORAL) Take by mouth. active scopolamine (TRANSDERM-SCOP) 1.5 mg patch 3 day Transderm-Scop 1.5 mg transdermal patch (1 mg over 3 days) APPLY 1 PATCH(ES) EVERY 72 HOURS BY TRANSDERMAL ROUTE. active trazodone 50 mg tablet TAKE 1/2 TO 1 TABLET ORALLY AT BEDTIME NEEDED FOR INSOMNIA TAKE 1/2 TO 1 TABLET ORALLY AT BEDTIME NEEDED FOR INSOMNIA completed Vyvanse 30 mg capsule TAKE 1 CAPSULE BY MOUTH DAILY TAKE 1 CAPSULE BY MOUTH DAILY completed Allergies Allergen Reaction Severity Comment Documented Date Source Status LIDOCAINE Intolerant 02/06/2019 [facility] active SULFAMETHOXAZOLE-T RIMETHOPRIM PALPITATIONSGI INTOLERANCE/NAUSEA /VOMITING 10/26/2018 [facility] active PENICILLINS HIVES 09/27/2014 [facility] active CODEINE RASH/DERMATITIS [facility] BACTRIM VOMITING [facility] MEDICINAL PRODUCT CONTAINING PENICILLIN AND ACTING ANTIBACTERIAL AGENT (PRODUCT) HIVES [facility] PRODUCT CONTAINING PENICILLIN AND ANTIBIOTIC (PRODUCT) HIVES [facility] Problems Problem Status Onset Date Problem Type Date of Resolution Source Gastroesophageal reflux disease active 2016-01-24 ProblemAct [facility] Adjustment disorder with mixed anxiety and depressed mood active 2019-10-31 ProblemAct [facility] Irritable bowel syndrome active 2016-08-05 ProblemAct [facility] Low back pain active 2019-08-17 ProblemAct [facility] Exercise-induced asthma active 2020-04-16 ProblemAct [facility] Essential tremor active 2021-09-18 ProblemAct [facility] Ophthalmic migraine active 2024-10-17 ProblemAct [facility] Seasonal allergic rhinitis active 2009-03-25 ProblemAct [facility] Generalized anxiety disorder active 2020-04-16 ProblemAct [facility] Attention deficit hyperactivity disorder, predominantly inattentive type active 2020-04-16 ProblemAct [facility] Acute lateral meniscus tear of left knee active 2018-07-06 ProblemAct [facility] Moderate episode of recurrent major depressive disorder active 2022-10-08 ProblemAct [facility] Anxiety disorder active 2019-11-07 ProblemAct [facility] ADHD (attention deficit hyperactivity disorder) evaluation active 2019-03-29 ProblemAct [facility] Major depressive episode active 2020-06-07 ProblemAct [facility] Tinnitus of both ears active EncounterDiagnosis Act [facility] Lumbar pain active 2019-08-17 ProblemAct [facility] Post traumatic stress disorder (PTSD) active 2019-03-29 ProblemAct [facility] Normal hearing test of both ears active EncounterDiagnosisAct [facility] On tracer clerk drug therapy active 2023-02-04 ProblemAct [facility] Acute bronchitis, unspecified organism active EncounterDiagnosisAct [facility] Immunizations Vaccine Date Source Lot Number Status influenza, seasonal, injecta ble, preservative free 04/06/2024 [id number] completed influenza, injectable, quadr ivalent, contains preservative 04/04/2023 [facility] completed SARS-COV-2 (COVID-19) vaccin e, mRNA, spike protein, LNP, bivalent, preservative free, 50 mcg/0.5 mL dose 07/03/2022 [facility] [id number] completed hepatitis B vaccine, adult dosage 04/10/2022 [facility] 39 TZ2 completed Influenza, injectable, quadr ivalent, preservative free 04/10/2022 [facility] [id number] completed hepatitis B vaccine, adult dosage 10/07/2021 [facility] P4 DJ5 completed hepatitis B vaccine, adult dosage 09/09/2021 [facility] P4 DJ5 completed SARS-COV-2 (COVID-19) vaccin e, mRNA, spike protein, LNP, preservative free, 100 mcg/0.5mL dose 05/20/2021 [facility] [id number] completed influenza, seasonal, injecta ble, preservative free 04/04/2021 [facility] completed SARS-COV-2 (COVID-19) vaccin e, mRNA, spike protein, LNP, preservative free, 100 mcg/0.5mL dose 07/29/2020 [facility] [id number] completed SARS-COV-2 (COVID-19) vaccin e, mRNA, spike protein, LNP, preservative free, 100 mcg/0.5mL dose 07/04/2020 [facility] [id number] completed COVID-19 MRNA (MODERNA) 07/03/2020 [facility] [id number] ompleted Influenza, Quadrivalent 04/10/2020 [facility] [id number] c ompleted influenza, seasonal, injecta ble, preservative free 04/09/2020 [facility] completed tuberculin skin test; purifi ed protein derivative solution, intradermal 03/05/2020 [facility] completed tetanus toxoid, reduced diph theria toxoid, and acellular pertussis vaccine, adsorbed 11/11/2019 [facility] [id number] completed tuberculin skin test; purifi ed protein derivative solution, intradermal 12/28/2017 [facility] completed tetanus toxoid, reduced diph theria toxoid, and acellular pertussis vaccine, adsorbed 08/27/2011 [facility] completed Encounters Encounter Type Encounter Reason Primary Diagnosis Location Date Ambulatory Enctr srvlnc implantable subdermal contraceptive Enctr srvlnc implantable subdermal contraceptive [facility], [facility] 01/11/2025 Ambulatory [facility] 10/17/2024 Ambulatory [facility] 10/17/2024 Ambulatory [facility] 10/17/2024 Ambulatory [facility] 10/15/2024 Ambulatory [facility] 10/15/2024 Ambulatory [facility] 10/15/2024 Ambulatory Tinnitus, bilateral Tinnitus, bilateral [facility] 09/04/2024 Ambulatory Encounter for test, result negative Encounter for test, result negative [email or web address] 07/25/2024 Ambulatory Pelvic and perineal pain Pelvic and perineal pain [facility], [facility] 07/10/2024 Ambulatory Encntr for director of pulmonary unit exam (general) (routine) w/o abn findings Encntr for director of pulmonary unit exam (general) (routine) w/o abn findings [facility] [employer] [facility], [facility] 06/20/2024 Ambulatory Acute vaginitis Acute vaginitis [facility] [employer], [facility] 06/16/2024 Ambulatory Other nail disorders Other nail disorders [facility] 03/22/2024 Ambulatory Other nail disorders Other nail disorders [facility] 02/04/2024 Ambulatory Acute cough Acute cough [facility] [employer] 12/27/2023 Ambulatory Acute sinusitis, unspecified Acute sinusitis, unspecified [facility] [employer] [facility] 07/10/2023 Ambulatory Enctr srvlnc implantable subdermal contraceptive [facility] [employer] [facility], [facility] 06/07/2023 Ambulatory [facility], [facility] 12/17/2022 Ambulatory nail extraction [facility] 023 Ambulatory [facility] nail [facility] 10/24/19 23 Ambulatory Injury of conjunctiva and corneal abrasion without foreign body, right eye, initial encounter [facility] 08/15/2022 Ambulatory [facility] 07/03/2022 Ambulatory In[facility] nail [facility] 01/31/20 22 Ambulatory Contact with and (suspected) exposure to covid-19 [facility] 01/16/2022 Emergency Unspecified abdominal pain [facility] 09/19/2021 Ambulatory Other specified disorders of nose and nasal sinuses [facility] 08/13/2021 Ambulatory [facility] 07/25/2021 Ambulatory [facility] 07/24/2021 Ambulatory [facility] 07/22/2021 Ambulatory Follow-up [facility] 07/15/2021 Ambulatory Adjustment disor adela with mixed anxiety and depressed mood [facility] 07/09/2021 Ambulatory Anxiety disorder , unspecified [facility] 07/08/2021 Ambulatory Ingrowing nail [facility] 06/30/20 21 Ambulatory Anxiety disorder , unspecified [facility] 06/09/2021 Ambulatory Anxiety disorder , unspecified [facility] 05/26/2021 Ambulatory [facility] 05/20/2021 Care Team Organization Name Specialty Phone Email Start Date End [facility] te [facility], 10/15/2024 01/14/2025 [facility] 05/07/2023 024 [facility] 12/17/2022 12/17/2022 [facility] 12/17/2022 [facility] Moriah Mcelroy [facility] 05/12/20222023 [facility] MORIAH MCELROY Primary Care 022 [facility] [employer] [facility] PCP,No Primary Care 01/16/2022 09/20/2024 [facility] [employer] [facility] NO PCP Primary Care 01/16/2022 01/16/2022 [facility] GINNY CALVILLO Primary Care 05/26/20 21 01/30/2022 [facility] Moriah Mcelroy [facility] 021 01/30/2022
--- OUTSIDE RECORDS SUMMARY | 2025-02-02 07:38 | XMS_ITS | Clinical Summary ---
Author Organization [facility] Address [address] [place] [address] Care Team Providers Care Enrolled Nurse Name Role Phone Moriah Mcelroy MD Primary Care Provider [phone] Allergies Active Allergy Reactions Criticality Noted Date Comments Codeine Rash Low 07/30/2015 Penicillins Hives 09/27/2014 Sulfa Antibiotics Nausea And Vomiting 7 Likely true allergic reaction to bactrim Sulfamethoxazole-Trime thoprim Nausea Only,Other (See Comments) 08/23/2019 Other reaction(s): Respiratory Distress Dizziness and vomiting Medications Medication Sig Dispensed Refills Start Date End Date Status Multiple Vitamins-Minerals (MULTI FOR HER PO) Take by mouth daily. 0 Active lisdexamfetamine (VYVANSE) 20 MG capsule Take 30 mg by mouth as needed. Takes on work days 0 Active Cetirizine HCl (ZYRTEC ALLERGY PO) Take by mouth daily. 0 Active escitalopram (LEXAPRO) tablet 10 mg escitalopram 15 mg tablet 0 Active acetaminophen (TYLENOL) 325 MG tablet Take 2 tablets (650 mg total) by mouth every 6 (six) hours as needed for pain. 120 tablet 0 11/13/2019 Active ALPRAZolam (XANAX) 0.25 MG tablet Take 1 tablet (0.25 mg total) by mouth 2 (two) times a day as needed. 0 06/26/2019 Active etonogestrel (NEXPLANON) 68 MG IMPL subcutaneous implant Nexplanon 68 mg subdermal implant Inject by subcutaneous route. 0 Active traZODone (DESYREL) 50 MG tablet 25mg to 50mg po at bedtime prn insomnia 0 06/13/2020 Active albuterol 108 (90 Base) MCG/ACT inhaler Inhale 2 puffs into the lungs every 6 (six) hours as needed. 0 01/16/2022 Active hyoscyamine (LEVSIN/SL) 0.125 MG SL tablet Take 1 tablet (0.125 mg total) by mouth every 4 (four) hours as needed for cramping. 540 tablet 0 02/11/2023 Active Scopolamine (TRANSDERM-SCOP) 1 MG/3DAYS Place 1 patch onto the skin every third day. 4 patch 0 02/28/2024 Active propranolol (INDERAL LA) 60 MG 24 hr capsule TAKE 1 CAPSULE BY MOUTH EVERY DAY 90 capsule 0 05/17/2024 Active Active Problems Problem Noted Date Diagnosed Date Essential tremor 09/18/2021 Attention deficit disorder (ADD) without hyperac tivity 04/16/2020 Generalized anxiety disorder with panic attacks 04/16/2020 Exercise-induced asthma 04/16/2020 Adjustment disorder with mixed anxiety and depre ssed mood 10/31/2019 Lumbar pain 08/17/2019 ADHD (attention deficit hyperactivity disorder) evaluation 03/29/2019 Overview: Overview: Not diagnosed with ADHD until 20 in college by PCP. At that time, she had problems with poor attention, lack of motivation, difficult to get projects done, poor organization, procrastination on assignments to last minutes, hyper all the time. 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 Reported the Vyance help relax her, focus much better, get things done and organized as well, She only uses the Vyvance at work days, not on off days. Denied any major side effects. 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 However, we are going to contact the PCP who has been providing the treatment for many years and help with pt's function at work setting, but not address her PTSD symptoms. As we work with the patient down in the road, we will discuss the diagnosis further, completely rule out the ADHD, or adjustment to the treatment. At present, patient will continue the Vyvance medication as prescribed. Irritable bowel syndrome wit h both constipation and diarrhea 08/05/2016 GERD (gastroesophageal reflux disease) 6 Seasonal allergic rhinitis 03/25/2009 Resolved Problems Problem Noted Date Diagnosed Date Resolved Date Diarrhea 08/18/2018 04/16/2020 Overview: Added automatically from request for surgery [id number] Abdominal bloating with cramps 08/18/2018 04/16/2020 Overview: Added automatically from request for surgery [id number] Bright red rectal bleeding 08/18/2018 1 Overview: Added automatically from request for surgery [id number] Acute lateral meniscus tear of left knee 07/06/2018 09/18/2021 Chronic ulcerative colitis 07/30/2015 0 08/05/2016 Immunizations Name Administration Dates Next Due Covid-19 (Moderna 12+) 100mcg/0.5mL dosage 05/20,07/29/2020,07/03/2020 Hepatitis B (Adult 3 dose)/( Adolescent 2 dose) Engerix 04/10/2022,10/07/2021,09/09/2021 Influenza Quad (Afluria/Fluz one) 0.5mL >=6mon Vial (SD-IIV4) 04/04/2023 Influenza Quad (Fluarix/Fluz one/FluLaval) 0.5mL (SD-IIV4) 04/10/2022 Influenza TIV (IM) (inactive) 04/04/2021, 020 TB Skin Test (TST-PPD) 03/05/2020,12/28/2017 Tdap 11/11/2019,08/27/2011 Family History Medical History Relation Name Comments Hyperlipidemia Father Hypertension Father Prostate cancer Father Leukemia Maternal Grandfather Rheum arthritis Maternal Grandfather Alcohol abuse Maternal Grandmother Cirrhosis Maternal Grandmother Aortic aneurysm Mother COPD Mother Lung cancer Mother Heart attack Paternal Grandfather stents Hypertension Paternal Grandfather Hyperlipidemia Paternal Grandmother Hypertension Paternal Grandmother Lung cancer Paternal Grandmother Alcohol abuse Sister Crohn's disease Sister Relation Name Status Comments Father Alive Maternal Grandfather Maternal Grandmother Mother (Age 59) Paternal Grandfather Paternal Grandmother Sister Alive Social History Tobacco Use Types Packs/Day Years Used Date Smoking Tobacco: Never Smokeless Tobacco: Never Alcohol Use Standard Drinks/Week Comments Yes 0 (1 standard drink = 0.6 oz pur e alcohol) once a month Sex and Gender Information Value Date Recorded Sex Assigned at Female 09/20/2018 10:33 AM EDT Gender Identity Not on file Sexual Orientation Not on file Job Start Date Occupation Industry Not on file Not on file Not on file Last Filed Vital Signs Vital Sign Reading Time Taken Comments Blood Pressure 102/70 05/29/2024 9:46 AM EST Pulse 83 05/29/2024 9:46 AM EST Temperature 36.4 C (97.5 F) 05/29/2024 9:46 AM EST Respiratory Rate 18 12/02/2020 12:48 PM EDT Oxygen Saturation 98% 05/29/2024 9:46 AM EST Inhaled Oxygen Concentration - - Weight 64.4 kg (142 lb) 05/29/2024 9:46 AM EST Height 160 cm (5' 3 ) 05/29/2024 9:46 AM EST Body Mass Index 25.15 05/29/2024 9:46 AM EST Plan of Treatment Health Maintenance Due Date Last Done Comments Pneumococcal Vaccine (1 of 2 - PCV) 11/26/1995 Depression Screening 2001 BMI Counseling 11/26/2007 Cervical Cancer Screening (Pap Smear) 08/05/2019 08/05/2016, 07/30/2015, 06/18/2014 Preventative Health Evaluation 09/18/2022 09/18/2021, 08/05/2016, 07/30/2015 COVID-19 Vaccine ( season) 2024 07/03/2022, 05/20/2021, 07/29/2020, Additional history exists Influenza Vaccine (#1) 2025 3, 04/10/2022, 04/04/2021, Additional history exists DTap / Tdap / Td (3 - Td or Tdap) 11/10/2029 11/11/2019, 08/27/2011 Hepatitis C Screening Completed 12/02/2020 Hepatitis B Vaccines Completed 04/10/2022, 10/07/2021, 09/09/2021 RSV Ped < 20 months Aged Out No longe r eligible based on patient's age to complete this topic Advance Directives For more information, please contact: [phone] Documents on File Type Date Recorded 

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
--- OUTSIDE RECORDS SUMMARY | 2025-02-02 07:38 | XMS_ITS | Encounter Summary ---
Author Organization [facility] Address [address] [place] [address] Care Team Providers Care Gas Singer Name Role Phone Danisha Connie J PsyD Unavailable [phone] Moriah Mcelroy MD Primary Care Provider Encounter Details Date Type Department Care Team (Late st Contact Info) Description 07/08/2024 Orders Only [facility] [address] [place] [address] [phone] Johnathon Chan MD [address] [place] [address] [phone] Social History Tobacco Use Types Packs/Day Years Used Date Smoking Tobacco: Never Smokeless Tobacco: Never Alcohol Use Standard Drinks/Week Comments Yes 0 (1 standard drink = 0.6 oz pur e alcohol) socially PHQ-2 Answer Date Recorded PHQ-2 Score 6 07/17/2021 Comments No Sex and Gender Information Value Date Recorded Sex Assigned at Female 11/07/2019 5:14 PM EDT Legal Sex Female 10:50 AM EST Gender Identity Female 11/07/2019 5:14 PM EDT Sexual Orientation Straight 06/23/2021 12 :05 AM EST documented as of this encounter Plan of Treatment Upcoming Encounters Date Type Department Care Team (Late st Contact Info) Description 04/19/2025 9:30 AM EDT Telemedicine [address] [address] Johnathon Chan MD [address] [place], [place] [address] [address] documented as of this encounter Visit Diagnoses Not on filedocumented in this encounter Additional Health Concerns Assessment Noted Time PHQ-9 Depression Total Score: 19 022 10:06 AM EST documented as of this encounter Care Teams Gas Singer Relationship Specialty Start Date End Date Moriah Mcelroy MD [address] [place] [address] PCP - General Internal Medicine 09/19/21 Connie Raman PsyD [address] [place] [id number] Psychology 05/22/20 documented as of this encounter
--- OUTSIDE RECORDS SUMMARY | 2025-02-02 07:38 | XMS_ITS | Clinical Summary ---
Author Organization [facility] Address [address] [place] [address] Care Team Providers Care Director Business Systems Name Role Phone Pcp, No Primary Care Provider Unavailabl e Allergies Active Allergy Reactions Criticality Noted Date Comments Codeine Rash/Dermatitis Low 08/23/2019 Penicillins Hives Medium 08/23/2019 Sulfamethoxazole-Trime thoprim Other (See Comments),Nausea Only,Palpitations,S hortness Of Breath,GI Intolerance/Nausea/ Vomiting High 10/26/2018 Dizziness and vomiting Other reaction(s): Respiratory Distress Dizziness and vomiting Medications etonogestrel (Nexplanon) 68 MG implant Nexplanon 68 mg subdermal implant Inject 1 implant by subcutaneous route. Active lisdexamfetamine (VYVANSE) 20 MG capsule Take 30 mg by mouth. Active ALPRAZolam (XANAX) 0.25 MG tablet Take 0.25 mg by mouth 2 (two) times a day as needed. 06/26/20 19 Active traZODone (DESYREL) 50 MG tablet trazodone 50 mg tablet 06/13/20 20 Active scopolamine (TRANSDERM-SCOP) patch Transderm-Scop 1.5 mg transdermal patch (1 mg over 3 days) APPLY 1 PATCH(ES) EVERY 72 [address]RS [address] TRAN[address]ERMAL ROUTE. Active hyoscyamine (LEVSIN) Elixir Take 125 mcg by mouth every 4 (four) hours as needed. Active acetaminophen (TYLENOL) 325 MG tablet Take 650 mg by mouth 4 times daily (every 6 hours) as needed. 11/13/19 20 Active Multiple Vitamins-Minerals (MULTIVITAMIN ADULT PO) Take by mouth. Activ e Cetirizine HCl (ZyrTEC) 10 MG Cap Take by mouth. Active escitalopram (LEXAPRO) 10 MG tablet Take 10 mg by mouth daily. Active propranolol (INDERAL) 10 MG tablet Take 10 mg by mouth 3 (three) times a day. Active propranolol (INDERAL) 60 MG tablet Take 60 mg by mouth 2 (two) times a day. Active Calcium-Vitamin D-Vitamin K (Calcium Soft Chews) 500-1000-40 MG-UNT-MCG Chew Tab Chew 1 gummy daily. Active Melatonin [address] 1 tablet under the tongue nightly. Active albuterol (PROVENTIL HFA; VENTOLIN HFA) 108 (90 Base) MCG/ACT inhalerIndications :Acute bronchitis, unspecified organism Inhale 2 puffs 4 times daily (every 6 hours) as needed for wheezing. 1 each 07/10/19 24 Active ondansetron (ZOFRAN-ODT) 4 MG disintegrating tablet Take 4 mg by mouth 4 times daily (every 6 hours) as needed for nausea or vomiting. FOR NAUSEA 12/23/19 24 Active proMETHAZINE-dextr omethorphan (proMETHAZINE-DM) 6.25-15 MG/5ML syrupIndications:A cute bronchitis, unspecified organism Take 5 mL by mouth 4 times daily (every 6 hours) as needed for cough. 120 mL 12/27/19 24 Active Active Problems No known active problems Encounters Date Type Department Care Team Description 01/11/2025 Orders Only [address] [phone] Jasmin Roland APRN from Last 3 Months Social History Tobacco Use Types Packs/Day Years Used Date Smoking Tobacco: Never Smokeless Tobacco: Never Alcohol Use Standard Drinks/Week Comments Yes 0 (1 standard drink = 0.6 oz pur e alcohol) socially AUDIT-C Answer Date Recorded Frequency of Alcohol Consumption Never 08/23/2019 Average Number of Drinks Not on file 020 Frequency of Binge Drinking Not on file 08/05 Comments No Sex and Gender Information Value Date Recorded Sex Assigned at Female 12/27/2023 2:14 PM EDT Legal Sex Female 7:01 PM EST Gender Identity Female 06/22/2021 11:57 PM EST Sexual Orientation Heterosexual (straight) 06/22 11:57 PM EST Last Filed Vital Signs Vital Sign Reading Time Taken Comments Blood Pressure 94/68 12/27/2023 1:22 PM EDT Pulse 92 12/27/2023 1:22 PM EDT Temperature 37.3 C (99.2 F) 12/27/2023 1:22 PM EDT Respiratory Rate 16 07/10/2023 8:51 AM EST Oxygen Saturation 96% 12/27/2023 1:22 PM EDT Inhaled Oxygen Concentration - - Weight 63 kg (139 lb) 12/27/2023 1:22 PM EDT Height 160 cm (5' 3 ) 12/27/2023 1:22 PM EDT Body Mass Index 24.62 12/27/2023 1:22 PM EDT Plan of Treatment Health Maintenance Due Date Last Done Comments Hepatitis C Virus Screening 1989 DTaP/Tdap/Td Vaccines (1 - Tdap) 2008 Hepatitis B Vaccines (1 of 3 - 19+ 3-dose series) 2008 COVID-19 Vaccine ( season) 2024 07/03/2022, 05/20/2021, 07/29/2020, Additional history exists Influenza Vaccine 02/02/2025 04/04/2023, , 04/04/2021, Additional history exists Pap Smear (Ages 21-65) 01/12/2028 01/11/2025, 2023 HIV Screening Completed 12/02/2020 HPV Vaccines Aged Out No longer eligi ble based on patient's age to complete this topic Pneumococcal Vaccine: Pediatric (0-5 Years) and At-Risk Patients (6 to 49 Years) Aged Out No longer eligible based on patient's age to complete this topic Procedures Procedure Name Priority Date/Time Associated Diagnosis Comments THINPREP PAP(DIAGRAM CLERK)GC/CT HPV SCR RFX HPV 16,18/45 Routine 01/11/2025 12:00 AM EDT from Last 3 Months Results * ThinPrep Pap(Property Accountant)GC/CT HPV Scr Rfx HPV 16,18/45 (01/11/2025 12:00 AM EDT) Clinical Information [facility] Comment:None given LMP: [facility] Comment:NONE GIVEN Previous PAP: [facility] Comment:NONE GIVEN Previous Biopsy [facility] Comment:NONE GIVEN Source: [facility] Comment:Cervix, Endocervix Statement of Adequacy: [facility] Comment: Satisfactory for evaluation. Endocervical/transformation zone component present. Interpretation/Res ult: [facility] Comment: Cytology Results: Negative for intraepithelial lesion or malignancy. Comment: [facility] Comment: This Pap test has been evaluated with the ThinPrep(R) Imaging System. Internal Grinder Set Up Operator: [facility] Comment: URIBE, CT(ASCP) CT screening location: [place] [address] Review Internal Grinder Set Up Operator: [facility] Comment: ALS, CT(ASCP) CT screening location: [place] [address] Comment [facility] Comment: EXPLANATORY NOTE: The Pap is a screening test for cervical cancer. It is not a diagnostic test and is subject to false negative and false positive results. It is most reliable when a satisfactory sample, regularly obtained, is submitted with relevant clinical findings and history, and when the Pap result is evaluated along with historic and current clinical information. Hpv Mrna [id number] Not Detected Not Detected [facility] Comment: Methodology: Center Maker Hand-Mediated Amplification This assay detects E6/E7 viral messenger RNA (mRNA) from 14 high-risk HPV types (16,18,31,33,35,39,45,51,52,56,58,59,66,68). Cervical sources are required for HPV testing. If a vaginal source from a patient who has had a total hysterectomy with removal of cervix was submitted, please contact the testing laboratory for alternative testing options. For additional information, please refer to http://education.[employer]/faq/SDF495k8 (This link if provided for information/ educational purposes only.) Chlamydia Trachomatis RNA, TMA NOT DETECTED NOT DETECTED [facility] Neisseria Gonorrhoeae RNA, TMA NOT DETECTED NOT DETECTED [facility] Chlamydia Trachomatis RNA, TMA Comment [facility] Comment: The analytical performance characteristics of this assay, when used to test SurePath(TM) specimens have been determined by [facility]. The modifications have not been cleared or approved by the FDA. This assay has been validated pursuant to the CLIA regulations and is used for clinical purposes. For additional information, please refer to https://education.[employer]/faq/IGQ752 (This link is being provided for information/ educational purposes only.) 01/11/2025 01/12/2025 10: 50 AM EDT Narrative [facility] - 01/15/2025 3:33 PM EDT [id number] NG us Jasmin Roland RESIDENCE DIRECTOR LAB AMB PATH/CYTO ORDERABLES F inal Result [facility] [address] [facility] [address] Floor, [place] [address] from Last [address] [place] [address] [facility] Care Teams Director Business Systems Relationship Specialty Start Date End Date Pcp, No PCP - General General Medicine 08/23/19
--- NOTE | 2025-02-02 07:56 | ED.GENADULT ---
HPI - General Adult General Chief complaint: General Medical Stated complaint: low BP Time Seen by Provider: 02/02/25 07:54 Source: patient, RN notes reviewed and old records reviewed Mode of arrival: ambulatory Limitations: no limitations History of Present Illness ED Provider: Timmy [facility] narrative: Patient is a 34-year-old female presenting to the ED with complaint of hypotension, lightheadedness since Smart lipo procedure on Wednesday. States that she held her propranolol for the procedure, had approximately 2L removed. Wednesday blood pressures were around 80 systolic, Wednesday around 90 systolic, then around 100 systolic, she so resumed her propranolol last night. This morning had 3 near syncopal episodes and orthostatic hypotension at home with reading as low as 60/40 (has picture of BP cuff at home). Was walking into work this morning and again felt lightheaded, needed assitance from co-worker to get into building. complaint: near syncope Related Data Previous Rx's ?Medication ?Instructions ?Recorded [id number]-[id number]-[id number] 1 tab PO Q6H PRN haeadace #20 tabs 08/03/23 50 mg-325 mg-40 mg tablet Allergies Allergy/AdvReac Type Severity Reaction Status Date / Time codeine Allergy Rash Verified 02/02/25 07:09 Penicillins Allergy Hives Verified 02/02/25 07:09 sulfamethoxazole (From AdvReac Palpitation Verified 02/02/25 07:09 Bactrim) s trimethoprim (From Bactrim) AdvReac Palpitation Verified 02/02/25 07:09 s Review of Systems Review of Systems: As per HPI Yes all other systems are reviewed and are negative Constitutional: Constitutional: Reports as per HPI [facility] Social History Social History Alcohol intake: current Alcohol intake frequency: holidays/special occasions only Advance Directives: No Advance Directives Information Provided: Yes Do you have a plan to hurt others: No Plan Physical Exam ED Vital Signs: Vital Signs - 24 hr 02/02/25 06:57 02/02/25 06:57 02/02/25 06:58 Temperature Pulse Rate 76 84 91 Respiratory Rate Blood Pressure 119/77 124/79 110/69 Pulse Oximetry Oxygen Delivery Method 02/02/25 06:59 02/02/25 07:08 02/02/25 08:49 Temperature 97.8 F 97.8 F 97.6 F Pulse Rate 90 76 75 Respiratory Rate 16 16 16 Blood Pressure 119/77 111/46 L Pulse Oximetry 98 98 96 Oxygen Delivery Method Room Air Room Air Room Air 02/02/25 11:03 02/02/25 11:04 02/02/25 11:04 Temperature Pulse Rate 71 87 90 Respiratory Rate Blood Pressure 110/72 110/70 102/72 Pulse Oximetry Oxygen Delivery Method BMI result Body Mass Index 24.8 Vital signs have been reviewed and appear to be correct. Blood pressure normal. Heart rate normal. Respiratory rate normal. Temperature normal. Oxygen saturation normal. Const General: cooperative, healthy appearing and no acute distress Orientation/consciousness: oriented to person, oriented to place, oriented to time and patient oriented x3 Limitations: no limitations HENMT Head: Yes normocephalic and Yes atraumatic Ears: external ears normal General nose exam: Normal external nose present Face and sinus: Yes face symmetric Mouth: oropharynx normal and moist mucous membranes Throat: Yes uvula midline Eyes Pupils: Equal, round and reactive pupils present Neck Neck: Yes normal visual inspection and Yes supple Resp Effort & Inspection: normal respiratory effort and able to speak in complete sentences Auscultation: clear to auscultation bilaterally Cardio Rate: regular rate Rhythm: regular rhythm Heart sounds: S1 normal heart sound present and S2 normal heart sound present GI Palpation (GI): Soft to palpation and nontender Auscultation: normoactive bowel sounds Abdomen image:  1. healing ecchymosis not increased in size compared to photos provided by patient post-procedure General: Yes no CVA tenderness Back/Spine/Pelvis Back: no CVA tenderness Skin General skin exam: elasticity normal and turgor normal Neuro General: oriented to person, oriented to place, oriented to time, patient oriented x3, moves all extremities, no focal motor deficits and CN's II-XI intact bilaterally Cranial nerves: Yes Equal, round and reactive pupils present Cognition (Neuro): normal cognition Extrem General: Yes full ROM, Yes no pedal edema and Yes no calf tenderness Psych Mental Status: mental status grossly normal Affect: normal affect Thought process: Normal thought process present Medications Administered Discontinued Medications Generic Name Dose Route Start Last Admin Trade Name Freq PRN Reason Stop Dose Admin Lactated Ringer's 1,000 mls @ 999 mls/hr 02/02/25 08:15 02/02/25 09:16 Lr IV 02/02/25 09:15 Infused .Q1H1M TRUDY Infusion Lactated Ringer's 1,000 mls @ 999 mls/hr 02/02/25 09:45 02/02/25 11:03 Lr IV 02/02/25 10:45 Infused .Q1H1M TRUDY Infusion Medical Decision Making Medical Decision Making [facility] [place] Narrative: Patient is a 34-year-old female presenting to the ED with complaint of hypotension, lightheadedness since Smart lipo procedure on Wednesday. On exam patient is awake, A+Ox3, VS WNL, afebrile, normal neurological exam without focal deficits, physical exam findings as above. Given reported symptoms and physical exam findings, initial differential includes but is not limited to orthostatic hypotension, anemia, dehydration, electrolyte abnormality. Labs notable for mild anemia as compared to labs from June of 2024, likely due to recent procedure. Patient states she also finished her menstrual period this week. No orthostatic hypotension noted in the department, however, patient has documented orthostatic vital signs on her phone. Patient given 2 L of LR with improvement in symptoms, repeat orthostatic vital signs checked without orthostatic intolerance noted. EKG shows normal sinus rhythm. The patient is stable for discharge home at this time. Discussed drinking adequate fluids, especially fluids with electrolytes. Advised follow up with PCP for repeat CBC this week. Return precautions discussed at bedside. Patient verbalized understanding of and agreement with plan. Differential Diagnosis Differential Diagnoses: The differential diagnosis associated with the presentation includes As per [facility] [place] Admission/Observation Consideration of admission/observation: Escalation of care including admission/observation considered Patient would have been admitted to the hospital had their clinical presentation warranted hospital admission. Lab Data [facility] [place] Lab Attestation statement: I reviewed the patient's lab results. As per [facility] 02/02/25 08:12 02/02/25 08:12 Labs: Lab Results 02/02/25 Range/Units 08:12 WBC 5.7 (4.8-10.8) X10*3/uL RBC 3.61 L (4.20-5.50) X10*6/uL Hgb 11.2 L (12.0-16.0) g/dl Hct 31.7 L (37.0-47.0) % MCV 87.8 (80.0-98.0) fL MCH 31.0 (27.0-33.0) pg MCHC 35.3 H (31.0-35.0) g/dl RDW 11.9 (11.0-16.0) % Plt Count 256 (160-400) X10*3/uL MPV 8.7 L (9.4-12.3) fL Immature Gran % (Auto) 0.2 (0.0-0.4) % Neut % (Auto) 70.8 (45-73) % Lymph % (Auto) 19.9 L (20-40) % Long % (Auto) 6.3 (2-11) % Eos % (Auto) 2.3 (0-4) % Baso % (Auto) 0.5 (0-2) % Lymph # (Auto) 1.1 L (1.2-4.9) X10*3/uL Long # (Auto) 0.4 (0.1-1.2) X10*3/uL Eos # (Auto) 0.1 (0.0-0.4) X10*3/uL Baso # (Auto) 0.0 (0.0-0.2) X10*3/uL Abs Immat Gran (auto) 0.01 (0.00-0.03) X10*3/uL Absolute Neuts (auto) 4.0 (2.0-8.3) x10*3/uL Absolute Nucleated RBC 0.000 (0.0-0.012) X10*3/uL Nucleated RBC % (auto) 0.0 (0.0-0.2) /100WBC Sodium 141 (135-145) mmol/L Potassium 4.0 (3.3-5.1) mmol/L Chloride 108 (96-108) mmol/L Carbon Dioxide 27 (22-29) mmol/L Anion Gap 10 L (12-20) BUN 15 (9-16) mg/dL Creatinine 0.78 (0.5-1.4) mg/dL Estim Creat Clear Calc 90.3 Estimated GFR > 60 Random Glucose 88 (60-115) mg/dL Calcium 8.7 D (8.4-10.2) mg/dL Total Bilirubin 0.5 (0.0-1.0) mg/dL AST 36 H (5-31) U/L ALT 31 (0-31) U/L Alkaline Phosphatase 40 (39-117) U/L Total Protein 6.0 L (6.5-8.0) g/dL Albumin 3.9 (3.5-5.0) g/dL External Record Review External record reviewed: Inpatient record, Office record and Outpatient record Discharge Plan Discharge Clinical Impression: Orthostatic hypotension Patient Disposition: Home, Self-Care Instructions: Hypotension (DC) Additional Instructions: You were evaluated in the emergency department today for lightheadedness which is likely due to your recent procedure. Your evaluation did not show evidence of conditions requiring emergent medical treatment at this time. Your labs showed mild anemia compared to prior labs from June of 2024. We recommend that you follow-up with your primary care provider within the next week for repeat labs. Return to the emergency department if you develop worsening or uncontrolled symptoms, headache, chest pain, shortness of breath, persistent vomiting, vision changes, recurrent fainting or any other concerning symptoms. Prescriptions: No Action [id number]-[id number] 50-325-40 mg tablet 1 tab PO Q6H PRN (Reason: haeadace) Qty: 20 0RF Stand Alone Forms: Work/School Release Print Language: Sinhala
[2025-02-02] MEDS: Lactated Ringers 1,000 ML 999 ML IV ×2 (08:15→10:01)
[2025-02-02 08:17] LABS: MANUAL DIFF FLAG NO
[2025-02-02 08:18] LABS: Hematocrit 31.7 % (37.0-47.0); Hemoglobin 11.2 g/dl (12.0-16.0); Imm Gran Abs Auto 0.01 X10*3/uL (0.00-0.03); Imm Gran Pct Auto 0.2 % (0.0-0.4); Lymphocytes Absolute Auto 1.1 X10*3/uL (1.2-4.9); Mean Corpuscular HGB Conc 35.3 g/dl (31.0-35.0); Mean Corpuscular Hemoglobin 31.0 pg (27.0-33.0); Mean Corpuscular Volume 87.8 fL (80.0-98.0); NRBC Abs Auto 0.000 X10*3/uL (0.0-0.012); NRBC Pct Auto 0.0 /100WBC (0.0-0.2); Platelet Count 256 X10*3/uL (160-400); Red Blood Count 3.61 X10*6/uL (4.20-5.50); White Blood Count 5.7 X10*3/uL (4.8-10.8)
--- NOTE | 2025-02-02 08:31 | PC.NURSE ---
hypotensive prior to arrival, has since resolved. continues to endorse dizziness upon standing. IV established, labs obtained and sent. fluids infusing
[2025-02-02 08:35] LABS: Alanine Aminotransferase 31 U/L (0-31); Albumin Level 3.9 g/dL (3.5-5.0); Alkaline Phosphatase 40 U/L (39-117); Anion Gap 10 (12-20); Aspartate Amino Transferase 36 U/L (5-31); Blood Urea Nitrogen 15 mg/dL (9-16); Calcium 8.7 mg/dL (8.4-10.2); Carbon Dioxide 27 mmol/L (22-29); Chloride 108 mmol/L (96-108); Creatinine Clr Calc Pharmacy 90.3; Estimated Glomerular Filt Rate > 60; Potassium 4.0 mmol/L (3.3-5.1); Sodium 141 mmol/L (135-145); Total Protein 6.0 g/dL (6.5-8.0)
--- NOTE | 2025-02-02 10:31 | PC.NURSE ---
plan for repeating ortho vital s/p second liter of fluids
== END 2025-02-02 11:30 | disposition home or self-care (01) ==
PROVIDERS: Emergency Provider Emergency Medicine Emergency Medical Services; PCP Internal Medicine
DX: I95.1 Orthostatic hypotension (principal); R42 Dizziness and giddiness
CPT/HCPCS: 36415; 80053; 85025; 93005; 96360; 96361; 99284; 99285; J7120

== ENCOUNTER → 2025-02-02 07:36 | Outpatient (BNV) | payer OTHER, SELFPAY | PROVIDERS: Emergency Provider Emergency Medicine Emergency Medical Services; PCP Internal Medicine; Visit Provider Internal Medicine Cardiovascular Disease | DX: R42 Dizziness and giddiness (principal) | CPT/HCPCS: 93010 ==